=== PATIENT | male | born 1965 | race African-American/Black ===

== ENCOUNTER 2017-04-20 13:18 | Emergency (ER) | payer MEDICAID ==
[~2017-04-20] VITALS: Ht 172.7 cm; Wt 75.0 kg
[~2017-04-20 13:18] MED LIST: BENZTROPINE; COGENTIN; DILANTIN; PAXIL; RISPERIDONE
[2017-04-20 16:00] LABS: BASOPHILS % 0.8 % (0.0-2.0); EOSINOPHILS % 5.3 % (0.0-5.0); HEMATOCRIT. 37.7 % (42.0-52.0); HEMOGLOBIN. 12.3 g/dL (14.0-18.0); LYMPHOCYTES % 44.1 % (20.0-50.0); MEAN CORPUSCULAR HEMOGLOBIN 27.1 pg (28.0-32.0); MEAN CORPUSCULAR VOLUME 83.1 fL (80.0-94.0); MEAN PLATELET VOLUME 8.7 fl (7.4-10.4); MONOCYTES % 5.8 % (2.0-8.0); PLATELET 140 x1000/uL (130-400); RED BLOOD CELL COUNT 4.54 mill/uL (4.7-6.1)
[2017-04-20 16:05] LABS: INR 1.1
[2017-04-20 16:07] LABS: CHLORIDE 107 mEq/L (98-107)
[2017-04-20 16:13] LABS: ETHANOL BLOOD < 10 mg/dL
[2017-04-20] MEDS ORDERED: LEVETIRACETAM 500MG TABLET PO ONE (16:30)
[2017-04-20 23:30] VITALS: BP 112/65
== END 2017-04-20 23:30 | disposition home or self-care (01) ==
LOC: ER 13:22
DX: G40.909 Epilepsy, unspecified, not intractable, without status epilepticus (principal); R51 Headache
CPT/HCPCS: 36415; 70450; 80053; 85025; 85610; 99285; G0482